=== PATIENT | female | born 1995 | race Caucasian/White ===

== ENCOUNTER 2024-08-22 13:22 | Inpatient (IN) ==
--- NOTE | 2024-08-22 13:39 | Emergency Department Note ---
History of Present Illness General Chief complaint: Dental/Oral Stated complaint: RIGHT SIDE TOOTH PAIN, FACIAL SWELLING Time Seen by Provider: 08/22/24 13:34 History of Present Illness Maximum Pain Intensity: 8 This is a 28-year-old female that presents to the emergency department via private vehicle with complaints of "right sided facial swelling, pain". The patient notes that she has had broken molars to the right upper dentition for the past 4 years. However, this past began with pain, edema that has progressively worsened since that time. She took 4 doses of cephalexin that she had leftover and was without any relief of her pain. The patient denies any pertinent past medical history. She notes allergy to amoxicillin/Augmentin. She notes history of 2 C-sections, tonsillectomy and colonoscopy. She also notes allergies to cefaclor and Benadryl. The patient denies any fevers or chills. She notes pain and swelling extending now overlying the right side of the face towards the right eye. Home Medications Medication Instructions Recorded Confirmed Type valacyclovir 500 mg tablet 500 mg PO DAILY 08/22/24 08/22/24 History Allergies Allergy/AdvReac Type Severity Reaction Status Date / Time amoxicillin Allergy Anaphylaxis Verified 08/22/24 15:42 clavulanic acid Allergy Anaphylaxis Verified 08/22/24 15:42 [From Augmentin] Past Med/Surg History Problem List (Updated 08/22/24 @ 17:01 by Zoran Villegas PA-C) Abnormal CT scan (Acute) Dental infection (Acute) Cellulitis and abscess of face (Acute) Social History Smoking Status: Current every day smoker Tobacco Type: Cigarettes Preferred Language: Ukrainian Feels Safe at Home: Yes Review of Systems A total of 10 systems reviewed and were otherwise negative Physical Exam Vital Signs Vital Signs - 24 hr 08/22/24 13:30 08/22/24 15:40 Temperature 36.5 C Temperature Source Temporal Artery Scan Pulse Rate 67 Pulse Rate [Apical] 53 L Respiratory Rate 20 16 Respiratory Effort / Characteristics Non-Labored Respiratory Depth Normal Respiratory Pattern Regular Blood Pressure 123/68 Blood Pressure [Right Arm] 126/85 Blood Pressure Mean 86 Blood Pressure Mean [Right Arm] 98 Pulse Oximetry 97 98 Oxygen Delivery Method Room Air Room Air Sepsis Recent Fever Within 48 Hours No Sepsis New/Unexplained Change in Mental Status N/A Sepsis Action Taken by Nursing No Action Required VITAL SIGNS - Vital signs and nursing notes were reviewed. Stable and afebrile. GENERAL -28-year-old female appearing her stated age who is in no acute distress. Communicates well with provider and answers questions appropriately. SKIN - Without rashes. There is right-sided facial erythema and edema. There is induration to palpation of the tissues with mild fluctuance HEAD - NC/AT. EYES - PERRL with EOMI bilaterally. Sclera anicteric. EARS - No deformities of external structures noted on gross examination bilaterally. NOSE - Midline and without cyanosis. No epistaxis or purulent drainage noted. MOUTH/OROPHARYNX - Without perioral cyanosis. Buccal mucosa pink and moist and without leukoplakia. Tongue midline with equal elevation of palate bilaterally. No tonsillar hypertrophy, erythema, or exudates noted. Fair dentition noted. Tooth #2 and 3 are in poor repair with surrounding gumline erythema and edema. NECK - Neck with FROM. Supple to palpation. Mild bilateral anterior cervical right greater than left lymphadenopathy noted. No nuchal rigidity. LUNGS - Chest wall symmetric without accessory muscle use, intercostals retractions, or central cyanosis. Normal vesicular breath sounds CTA B/L. No wheezes, rales, or rhonchi appreciated. CARDIAC - RRR EXTREMITIES - No clubbing or peripheral cyanosis. +5/5 strength noted in UE/LE bilaterally. NEUROLOGIC - Cranial nerves II through XII grossly intact. PSYCH -alert, oriented and pleasant on exam Course Administered Medications Discontinued Medications Clindamycin Phosphate (Cleocin/D5w) 600 mg in 50 mls @ 100 mls/hr IV NOW ONE Stop: 08/22/24 14:38 Last Infusion: 08/22/24 15:50 Dose: Infused Documented By: Admin: 08/22/24 14:52 Dose: 100 mls/hr Documented By: SILVINO Ioversol (Optiray 320 100ml) 93 ml IV ONCE ONE Stop: 08/22/24 15:18 Last Admin: 08/22/24 15:17 Dose: 93 ml Documented By: SARAVANAN Ketorolac Tromethamine (Ketorolac Tromethamine 15 Mg/Ml Vial) 10 mg IV NOW ONE Stop: 08/22/24 15:22 Last Admin: 08/22/24 15:42 Dose: 10 mg Documented By: REGINA Morphine Sulfate (Morphine Sulfate 2 Mg/Ml Carp) 2 mg IV NOW STA Stop: 08/22/24 14:10 Last Admin: 08/22/24 14:23 Dose: 2 mg Documented By: SILVINO Morphine Sulfate (Morphine Sulfate 2 Mg/Ml Carp) 2 mg IV NOW STA Stop: 08/22/24 15:22 Last Admin: 08/22/24 15:42 Dose: 2 mg Documented By: REGINA Medical Decision Making Laboratory Data 08/22/24 14:19 08/22/24 14:19 Lab Results 08/22/24 Range/Units 14:19 WBC 11.20 H (4.8-10.8) K/ul RBC 4.54 (4.20-5.40) M/uL Hgb 12.9 (12.0-16.0) g/dl Hct 40.1 (37.0-47.0) % MCV 88.3 (80.0-100.0) fL MCH 28.4 (25.0-34.0) pg MCHC 32.2 (32.0-36.0) g/dL RDW Std Deviation 42.6 (36.4-46.3) fL RDW Coeff of Carlos 13.2 (11.5-14.5) % Plt Count 274 (130-400) K/uL MPV 10.4 (9.4-12.4) fL Immature Gran % (Auto) 0.4 % Neut % (Auto) 74.0 % Lymph % (Auto) 18.6 % [place] % (Auto) 5.9 % Eos % (Auto) 0.7 % Baso % (Auto) 0.4 % Neut # (Auto) 8.29 H (1.40-6.50) K/uL Lymph # (Auto) 2.08 (1.20-3.40) K/uL [place] # (Auto) 0.66 H (0.11-0.59) K/uL Eos # (Auto) 0.08 (0.00-0.50) K/uL Baso # (Auto) 0.05 (0.00-0.20) K/uL Immature Gran # (Auto) 0.04 (0.01-0.20) K/uL Sodium 137 (136-145) mmol/L Potassium 4.0 (3.5-5.1) mmol/L Chloride 105 (98-107) mmol/L Carbon Dioxide 28 (21-32) mmol/L Anion Gap 4 (3-11) BUN 11 (6-23) mg/dl Creatinine 0.55 L (0.6-1.2) mg/dl Est Cr Clr Drug Dosing 183.7 ml/min eGFR 129.56 BUN/Creatinine Ratio 20.0 (10-20) Glucose 104 H (70-99(Fasting)) mg/dl Calcium 8.9 (8.6-10.3) mg/dl Total Bilirubin 0.3 (0.2-1.0) mg/dl AST 7 L (13-39) U/L ALT 4 L (7-52) U/L Alkaline Phosphatase 77 (34-104) U/L Total Protein 7.4 (6.0-8.3) gm/dl Albumin 4.2 (3.4-5.0) gm/dl Globulin 3.2 (2.5-4.0) gm/dl Albumin/Globulin Ratio 1.3 (0.9-2) HCG, Qual Negative (Negative) Imaging Data Radiologist's Impression: Face CT 08/22/24 14:09 EXAMINATION: CT facial bone with contrast PROCEDURE: Contiguous axial images were obtained through the face With the use of intravenous contrast in bone windows. Sagittal and coronal reformations are supplied. COMPARISON: None INDICATION: Right-sided facial edema FINDINGS: Moderate edema present within the deep subcutaneous tissues adjacent to the right upper teeth, image 4, series 95. Lucency present at the base of the right first upper molar, image 37, series 2 and image 37, series 301. Immediately adjacent to this, within the subcutaneous tissues laterally, a small fluid collection is present, image 115, series 4, measuring 8 mm. An osseous defect noted at the base of the right maxillary sinus, in the area of right upper periodontal disease, with total opacification of the right maxillary sinus, suggesting erosion into the sinus. Apparent postoperative change of the right maxillary sinus, medial wall. Adenopathy present adjacent to the angle of the right mandible, image 49, series 4. No left-sided facial swelling. There bilateral salivary glands enhance symmetrically. Lingular adenoids enlarged. Floor of the mouth and base of the tongue within normal limits. No tonsillar enlargement. Uvula and epiglottis have a normal appearance. No radiopaque foreign body. Airway is patent. IMPRESSION: 1. Right upper first molar periodontal disease with abscess, adjacent soft tissue swelling, adenopathy and apparent erosion into the right maxillary sinus. Total opacification of the right maxillary sinus present favoring acute and/or chronicsinus disease. Dental or oral surgery consultation suggested. ACT 112: Positive. There are findings on this examination that require communication between the performing entity and the patient following Patient Test Result Information Act ([place] ACT 112) guidelines. Electronically signed by Marycarmen Fontana 08-22-2024 4:03 PM MDM Narrative Patient was seen and evaluated as above in room D03. Review was performed of triage nursing notes and vital signs. Patient presents to us today for evaluation of progressive right-sided facial swelling and pain. This appears to be originating from tooth #2 and 3, right superior molar region. She does have associated facial cellulitis on the right. I am suspicious for underlying abscess as well. Options of care were discussed with the patient. IV access with established. Labs were drawn. Noting patient's allergies to penicillins and reportedly to some cephalosporins, we will proceed with IV clindamycin for coverage of the facial cellulitis likely of dental origin. Morphine x 2 ordered as well as IV Toradol. There is leukocytosis 11.20. No anemia. No emergent metabolic disturbance. hCG negative. CT scan of the face with IV contrast was performed. This is as above. Right upper first molar periodontal disease with abscess, adjacent soft tissue swelling, adenopathy and apparent erosion of the right maxillary sinus. There is total opacification of the right maxillary sinus present favoring acute and/or chronic sinus disease. 4:16 PM: [place] [facility] [place] will be for admission, IV antibiotics and further evaluation and management. Plan at this time is inpatient management. Case discussed with the hospitalist service. Please refer to further documentation regarding her stay. GCS: 15 In the evaluation and treatment of this patient, the following differential diagnoses were considered: Periapical Abscess, Osteonecrosis of the Jaw, Dental Fracture, Dental Caries, Rambo's Angina, Vincent's Angina, Facial Cellulitis, among others. Impression & Plan Cellulitis and abscess of face, Dental infection, Abnormal CT scan Discharge Plan Visit Data Chief Complaint: Dental/Oral Stated Complaint: RIGHT SIDE TOOTH PAIN, FACIAL SWELLING ED Provider: Jj Bagley ED Midlevel Provider: Zoran Villegas Discharge Problem: Cellulitis and abscess of face, Dental infection, Abnormal CT scan Patient Disposition: Admitted As Inpatient Condition: Good Forms Stand Alone Forms: [facility] Prescriptions Prescriptions: No Action valacyclovir 500 mg tablet 500 mg PO DAILY Referrals Referrals: PCP,NO [Primary Care Provider] -
[2024-08-22] MEDS: MoRPHine SULFATE 2 MG/ML CARP IV STA ×2 (14:23→15:42)
[2024-08-22 14:39] LABS: Basophils # (auto) 0.05 K/uL (0.00-0.20); Basophils % (auto) 0.4 %; Eosinophils # (auto) 0.08 K/uL (0.00-0.50); Eosinophils % (auto) 0.7 %; Hematocrit (blood only) 40.1 % (37.0-47.0); Hemoglobin 12.9 g/dl (12.0-16.0); Immature Granulocytes # (auto) 0.04 K/uL (0.01-0.20); Immature Granulocytes % (auto) 0.4 %; Lymphocytes # (auto) 2.08 K/uL (1.20-3.40); Lymphocytes % (auto) 18.6 %; Mean Corpuscular Hemoglobin 28.4 pg (25.0-34.0); Mean Corpuscular Hgb Conc 32.2 g/dL (32.0-36.0); Mean Corpuscular Volume 88.3 fL (80.0-100.0); Mean Platelet Volume 10.4 fL (9.4-12.4); Monocytes # (auto) 0.66 K/uL (0.11-0.59); Monocytes % (auto) 5.9 %; Neutrophils # (auto) 8.29 K/uL (1.40-6.50); Platelet Count 274 K/uL (130-400); RDW Coefficient of Variation 13.2 % (11.5-14.5); RDW Standard Deviation 42.6 fL (36.4-46.3); Red Blood Count 4.54 M/uL (4.20-5.40)
[2024-08-22 14:51] LABS: Pregnancy Test, Serum Negative (Negative)
[2024-08-22] MEDS: CLINDAMYCIN/D5W 600 MG/50 ML BAG IV ONE (14:52)
[2024-08-22 14:55] LABS: Albumin Globulin Ratio 1.3 (0.9-2); Albumin Level 4.2 gm/dl (3.4-5.0); Bilirubin,Total 0.3 mg/dl (0.2-1.0); Calcium 8.9 mg/dl (8.6-10.3); Creatinine Clr Calc Pharmacy 183.7 ml/min; Globulin 3.2 gm/dl (2.5-4.0); Total Protein 7.4 gm/dl (6.0-8.3)
[2024-08-22] MEDS: OPTIRAY 320 100ml IV ONE (15:17)
[2024-08-22] MEDS: KETOROLAC TROMETHAMINE 15 MG/ML VIAL IV ONE (15:42)
--- NOTE | 2024-08-22 16:03 | CT Scan Report ---
EXAMINATION: CT facial bone with contrast PROCEDURE: Contiguous axial images were obtained through the face With the use of intravenous contrast in bone windows. Sagittal and coronal reformations are supplied. COMPARISON: None INDICATION: Right-sided facial edema FINDINGS: Moderate edema present within the deep subcutaneous tissues adjacent to the right upper teeth, image 4, series 95. Lucency present at the base of the right first upper molar, image 37, series 2 and image 37, series 301. Immediately adjacent to this, within the subcutaneous tissues laterally, a small fluid collection is present, image 115, series 4, measuring 8 mm. An osseous defect noted at the base of the right maxillary sinus, in the area of right upper periodontal disease, with total opacification of the right maxillary sinus, suggesting erosion into the sinus. Apparent postoperative change of the right maxillary sinus, medial wall. Adenopathy present adjacent to the angle of the right mandible, image 49, series 4. No left-sided facial swelling. There bilateral salivary glands enhance symmetrically. Lingular adenoids enlarged. Floor of the mouth and base of the tongue within normal limits. No tonsillar enlargement. Uvula and epiglottis have a normal appearance. No radiopaque foreign body. Airway is patent. IMPRESSION: 1. Right upper first molar periodontal disease with abscess, adjacent soft tissue swelling, adenopathy and apparent erosion into the right maxillary sinus. Total opacification of the right maxillary sinus present favoring acute and/or chronicsinus disease. Dental or oral surgery consultation suggested. ACT 112: Positive. There are findings on this examination that require communication between the performing entity and the patient following Patient Test Result Information Act ([place] ACT 112) guidelines. Electronically signed by Marycarmen Fontana 08-22-2024 4:03 PM
--- NOTE | 2024-08-22 17:27 | History & Physical Report ---
Date of Service August 22, 2024 Assessment & Plan (1) Cellulitis and abscess of face: Plan: -CT imaging consistent with abscess formation and soft tissue swelling -in setting of difficulty with wisdom teeth and broken molar -acute on chronic sinusitis disease -has MRSA and anaerobic risk factors given facial placement Plan: -vancomycin/meropenem for empiric coverage of abscess (has penicillin allergy), deescalate based on culture data -OMFS consulted, potential procedure tomorrow, NPO after midnight -tylenol, oxycodone for pain control (2) Dental infection: Plan: -see above (3) Tobacco use: Plan: -nicotine patch Plan Feeding/fluids: regular (NPO after midnight) Analgesia: tylenol/oxy Sedation: na Thromboprophylaxis: heparin Head up position: na Ulcer prophylaxis: na Glycemic control: na Spontaneous breathing trial: na Bowel care: na Indwelling catheter removal: na Deescalation of antibiotics: vancomycin/meropenem, deescalate based on culture data I spent a total of 80 minutes in direct patient care, including [id number] time with the patient and/or family, reviewing medical records, ordering and reviewing diagnostic tests, and coordinating care with other healthcare providers. This time includes: history taking, physical examination, medical decision making, counseling, ECG interpretation, imaging interpretation, lab interpretation, orders, and education, excluding time spent in the performance of separately billed services. History of Present Illness Chief Complaint: -right facial swelling Primary Care Provider: NO PCP 28 yo female with pmhx of chronic dental infections (hx of 4 years total), current tobacco use who presents with right sided facial pain. States that she has been having issues with dental infections for the past 4 years. Per patient, one of her tooth broke 4 years ago and there was difficulty with wisdom teeth as well. She states this specific facial swelling is on the right side, has been getting worse, and has been there for the past 6-7 months. She describes pain as throbbing pain. Had anaphylactic reaction to augmentin, discussed with patient, described as hives and throat swelling. Current tobacco user, mild alcohol use, marijuana use, full code. Allergies Allergy/AdvReac Type Severity Reaction Status Date / Time amoxicillin Allergy Anaphylaxis Verified 08/22/24 15:42 clavulanic acid Allergy Anaphylaxis Verified 08/22/24 15:42 [From Augmentin] Home Medications Medication Instructions Recorded Confirmed Type valacyclovir 500 mg tablet 500 mg PO DAILY 08/22/24 08/22/24 History Past Med/Surg History Problem List Tobacco use Abnormal CT scan (Acute) Dental infection (Acute) Cellulitis and abscess of face (Acute) Social History Smoking Status: Current every day smoker Tobacco Type: Cigarettes Preferred Language: Slovak Feels Safe at Home: Yes Review of Systems Review of Systems: CONSTITUTIONAL: Patient denies fevers, chills, sweats and weight changes. EYES: Patient denies any visual symptoms. EARS, NOSE, AND THROAT: right facial pain and swelling CARDIOVASCULAR: Patient denies chest pains, palpitations, orthopnea and paroxysmal nocturnal dyspnea. RESPIRATORY: No dyspnea on exertion, no wheezing or cough. GI: No nausea, vomiting, diarrhea, constipation, abdominal pain, hematochezia or melena. : No urinary hesitancy or dribbling. No nocturia or urinary frequency. No abnormal urethral discharge. MUSCULOSKELETAL: No myalgias or arthralgias. NEUROLOGIC: No chronic headaches, no seizures. Patient denies numbness, tingling or weakness. PSYCHIATRIC: Patient denies problems with mood disturbance. No problems with anxiety. ENDOCRINE: No excessive urination or excessive thirst. DERMATOLOGIC: Patient denies any rashes or skin changes. Physical Exam Physical Exam: Gen: A&O 3 NAD HEENT: noted erythema and soft tissue edema of right face, abscess palpable, tender to palpation Neck: Supple, full range of motion, no observable masses, No meningeal sign. Lungs: No Respiratory distress. CV: RRR, no edema. Abdomen: Soft, nondistended, No rebound tenderness. MSK: No joint swelling, no redness. Skin: No rashes, petechiae, lesions. Normal color per patient. Neuro: Normal Gait, Grossly intact. Psych: Appropriate for situation. Results & Data Results & Data Vital Signs (Past 12 Hours) Vital Signs Temp Pulse Pulse Resp BP BP Pulse Ox 08/22/24 15:40 53 L 16 126/85 98 08/22/24 13:30 36.5 C 67 20 123/68 97 O2 Del Method 08/22/24 15:40 Room Air 08/22/24 13:30 Room Air Laboratory Results -personally reviewed, mild leukocytosis consistent with right facial infection Diagnostic Findings Face CT 08/22/24 14:09 EXAMINATION: CT facial bone with contrast PROCEDURE: Contiguous axial images were obtained through the face With the use of intravenous contrast in bone windows. Sagittal and coronal reformations are supplied. COMPARISON: None INDICATION: Right-sided facial edema FINDINGS: Moderate edema present within the deep subcutaneous tissues adjacent to the right upper teeth, image 4, series 95. Lucency present at the base of the right first upper molar, image 37, series 2 and image 37, series 301. Immediately adjacent to this, within the subcutaneous tissues laterally, a small fluid collection is present, image 115, series 4, measuring 8 mm. An osseous defect noted at the base of the right maxillary sinus, in the area of right upper periodontal disease, with total opacification of the right maxillary sinus, suggesting erosion into the sinus. Apparent postoperative change of the right maxillary sinus, medial wall. Adenopathy present adjacent to the angle of the right mandible, image 49, series 4. No left-sided facial swelling. There bilateral salivary glands enhance symmetrically. Lingular adenoids enlarged. Floor of the mouth and base of the tongue within normal limits. No tonsillar enlargement. Uvula and epiglottis have a normal appearance. No radiopaque foreign body. Airway is patent. IMPRESSION: 1. Right upper first molar periodontal disease with abscess, adjacent soft tissue swelling, adenopathy and apparent erosion into the right maxillary sinus. Total opacification of the right maxillary sinus present favoring acute and/or chronicsinus disease. Dental or oral surgery consultation suggested. ACT 112: Positive. There are findings on this examination that require communication between the performing entity and the patient following Patient Test Result Information Act ([place] ACT 112) guidelines. Electronically signed by Marycarmen Fontana 08-22-2024 4:03 PM -personally reviewed, facial CT shows abscess formation and soft tissue swelling Code Status & VTE Plan VTE Prophylaxis Plan VTE Prophylaxis will be ordered: Yes
[2024-08-22] MEDS ORDERED: VANCOMYCIN CONSULT ACTIVE PRN (17:32)
--- NOTE | 2024-08-22 18:13 | Oral/Maxillofacial Consult ---
Date of Consultation August 22, 2024 Assessment & Plan (1) Chronic sinus infection: (2) Acute sinusitis with symptoms greater than 10 days: (3) Cellulitis and abscess of face: (4) Dental infection: (5) Tobacco use: (6) Abnormal CT scan: History of Present Illness Reason for Consultation: right facial infection, sinus infection, carious # 1 and 3 (abscess teeth ) History of Present Illness Oral Maxillofacial Surgery Exam Present Complaint: I have pain/swelling/drainage from my infected teeth. Symptoms have been ongoing for a while over 4 years Recently had swelling of the right palate Now the right cheek, mucobuccal fold, and lateral maxillary space tender and swollen. Fistula noted in the right sinus with purulent drainage Oral Exam: Finding--Swollen and tender gingival tissue with deep pocket formation. Teeth # 1 and 3 are in an abnormal position and removal is clinical indicated. I&D needed as well of irrigation and I&D via Alvarez Hebert right sinus Imaging: The CT was reviewed, there were no abnormal findings other then the infected # 1 and # 3 teeth The right sinus is completely obliterated with fluid, a small fistula is noted, The medical wall of the sinus is eroded the ethmoid sinus right side also congested The TMJ are well positioned and no evidence of bony pathology. The left sinus is WNL Right -sinus see above Evaluated the nerve/sinus relationship to the roots of the teeth. The following teeth are grossly infected # 1 and #3 EXAMINATION: CT facial bone with contrast INDICATION: Right-sided facial edema FINDINGS: Moderate edema present within the deep subcutaneous tissues adjacent to the right upper teeth, image 4, series 95. Lucency present at the base of the right first upper molar, image 37, series 2 and image 37, series 301. Immediately adjacent to this, within the subcutaneous tissues laterally, a small fluid collection is present, image 115, series 4, measuring 8 mm. An osseous defect noted at the base of the right maxillary sinus, in the area of right upper periodontal disease, with total opacification of the right maxillary sinus, suggesting erosion into the sinus. Apparent postoperative change of the right maxillary sinus, medial wall. Adenopathy present adjacent to the angle of the right mandible, image 49, series 4.--No history of sinus surgery this is from the chromic sinus infection No left-sided facial swelling. There bilateral salivary glands enhance symmetrically. Lingular adenoids enlarged. Floor of the mouth and base of the tongue within normal limits. No tonsillar enlargement. Uvula and epiglottis have a normal appearance. No radiopaque foreign body. Airway is patent. IMPRESSION: 1. Right upper first molar periodontal disease with abscess tooth # 1 and 3 , adjacent soft tissue swelling, adenopathy and apparent erosion into the right maxillary sinus. Total opacification of the right maxillary sinus present favoring acute and/or chronic sinus disease. Dental or oral surgery consultation suggested. Soft tissue: The floor of the mouth, tongue, hard/soft palate, posterior pharyngeal area all with in normal limits, no pathology or abnormal findings noted. Oral Care: Overall oral care is good except upper right side Occlusion: Class I TMJ exam: No pop, clicking, pain, good ROM, No history of TMJ injury or dysfunction Periodontal exam: Healthy gingival tissue without evidence of periodontal pathology except right upper Head/Neck exam: Neck is supple, FROM, Able to extend and flex neck w/o difficulty, no masses, no abnormalities, no airway issues, no evidence of sleep apnea. Treatment Plan: I&D mucobuccal area, right sinus, extraction # 1 and 3 Set up with general anesthesia in hospital due to complexity of the procedure I reviewed the treatment plan and consent with the patient and mother who was on the phone Time was given for questions regarding the surgery, risks and post op care. Discussed alternative to treatment--procedure as planned, Do not do surgery The following teeth are decayed and fractured and removal is indicated ODIN 1, 3 I&D, Alvarez-Hebert Risks discussed: Bleeding,Pain,swelling,infection, dry socket, delayed healing, nerve injury to face,lips,tongue,chin area which could be permanent (rare). TMJ, jaw stiffness, change in bite (rare), ear pain (referred). Sinus problems like fistula or infection. Need to leave a small root fragment in place to avoid injury to nerve or sinus. Relationship of teeth to sinus and risk of sinus infection or further sinus treatment Surgery to be set up Friday with [place] in OR Allergies Allergy/AdvReac Type Severity Reaction Status Date / Time amoxicillin Allergy Anaphylaxis Verified 08/22/24 15:42 clavulanic acid Allergy Anaphylaxis Verified 08/22/24 15:42 [From Augmentin] Home Medications Medication Instructions Recorded Confirmed Type valacyclovir 500 mg tablet 500 mg PO DAILY 08/22/24 08/22/24 History Patient History Social History Smoking Status: Current every day smoker Tobacco Type: Cigarettes Preferred Language: Syriac Feels Safe at Home: Yes Physical Exam Physical Exam: Physical Exam Constitutional WD/WN, vitals as above Eyes PERRL, conjunctivae normal, anicteric sclerae Mouth Right upper first molar periodontal disease with abscess tooth # 1 and 3 , adjacent soft tissue swelling, adenopathy and apparent erosion into the right maxillary sinus. Total opacification of the right maxillary sinus present favoring acute and/or chronic sinus disease. Dental or oral surgery consultation suggested. Neck trachea midline, no thyromegaly Thyroid: normal thyroid Respiratory normal respiratory effort, lungs clear to auscultation Auscultation: lungs clear to auscultation bilaterally Cardiovascular RRR, no murmur, no edema Rate/Rhythm: regular rate and regular rhythm Gastrointestinal (Abdomen) normal bowel sounds, soft, nontender, no hepatosplenomegaly Musculoskeletal no cyanosis or clubbing, extremities motor strength 5/5 Skin no rashes, warm and dry Neurologic PERRL, EOMI, accommodation nl, no face palsy, no dysarthria Cranial Nerves: sense of smell intact, PERRL, normal accommodation, EOM intact bilaterally, normal facial strength, tongue midline, normal gag reflex, normal hearing, able to rotate head bilaterally, able to elevate shoulders bilaterally, no nystagmus and symmetric palate elevation Psychiatric A+Ox3, euthymic affect Orientation: cooperative Lymphatic no cervical or axillary lymphadenopathy Results & Data Vital Signs (Past 12 Hours) Vital Signs Temp Pulse Pulse Resp BP BP Pulse Ox 08/22/24 15:40 53 L 16 126/85 98 08/22/24 13:30 36.5 C 67 20 123/68 97 O2 Del Method 08/22/24 15:40 Room Air 08/22/24 13:30 Room Air PG Care Time/CCT Total # of Minutes Spent Total Time Spent with Patient: Total time spent is greater than 50% in coordination of care (as documented) at patient's floor/unit and/or counseling patient: Coding Level of Care Code 76142 OFFICE CONSULT LVL M Diagnoses Chronic maxillary sinusitis J32.0 Sinusitis location: maxillary Acute sinusitis with symptoms greater than 10 days J01.90 Cellulitis and abscess of face L03.211; L02.01 Dental infection K04.7 Tobacco use Z72[address] scan R93.89 (1) Chronic sinus infection Sinusitis location: maxillary Qualified Code(s): J32.0 - Chronic maxillary sinusitis
[2024-08-22] MEDS: ACETAMINOPHEN 500 MG TAB PO STA (18:26)
[2024-08-22] MEDS: NICOTINE 14 MG/24 HR PATCH TD SCH (18:27)
[2024-08-22] MEDS ORDERED: ACETAMINOPHEN 500 MG TAB PO PRN (19:02)
[2024-08-22] MEDS ORDERED: POLYETHYLENE (MIRALAX) 17 GM PACK PO PRN (19:02)
[2024-08-22] MEDS: oxyCODONE HCL IR 5 MG TAB (IMMEDIATE RELEASE) PO PRN (19:56)
[2024-08-22] MEDS: MEROPENEM 500 MG in SYRINGE 0 ML IV SCH (20:25)
[2024-08-22] MEDS: VANCOMYCIN HCL 2,250 MG in SODIUM CHLORIDE 0.9% 500 ML IV ONE (20:27)
[2024-08-22] MEDS: HEPARIN SOD 5,000 UNIT/0.5 ML VIAL SQ SCH (23:07)
[2024-08-22] MEDS: CETIRIZINE HCL 10 MG TABLET PO ONE (23:16)
[2024-08-22] MEDS: FAMOTIDINE 20MG IV PUSH 20 MG/5 ML SYR IV STA (23:16)
[2024-08-22] MEDS: ACETAMINOPHEN 500 MG TAB PO PRN (23:22)
[2024-08-23] MEDS: CLINDAMYCIN/D5W 600 MG/50 ML BAG IV SCH (05:06)
[2024-08-23] MEDS ORDERED: VANCOMYCIN HCL 1,250 MG in SODIUM CHLORIDE 0.9% 250 ML IV SCH (06:00)
[2024-08-23 06:14] LABS: Hematocrit (blood only) 37.1 % (37.0-47.0); Hemoglobin 11.7 g/dl (12.0-16.0); Mean Corpuscular Hgb Conc 31.5 g/dL (32.0-36.0); Mean Corpuscular Volume 88.8 fL (80.0-100.0); Mean Platelet Volume 10.6 fL (9.4-12.4); Platelet Count 229 K/uL (130-400); RDW Coefficient of Variation 13.3 % (11.5-14.5); RDW Standard Deviation 43.4 fL (36.4-46.3); Red Blood Count 4.18 M/uL (4.20-5.40); White Blood Count 10.41 K/ul (4.8-10.8)
[2024-08-23 06:31] LABS: BUN Creatinine Ratio 14.8 (10-20); Calcium 8.7 mg/dl (8.6-10.3); Creatinine Clr Calc Pharmacy 165.6 ml/min; Potassium 3.7 mmol/L (3.5-5.1)
[2024-08-23 06:53] LABS: Prothrombin Time 11.2 Seconds (9.0-12.0)
--- NOTE | 2024-08-23 07:38 | Communication Note ---
Date of Service: August 23, 2024 Last night while getting iv vanco gurpreet developed itchiness in hands, erythematous rash in hands and fore arm and back. 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 stopped iv vanco. received meropenem earlier.Gave zyrtec (patient has allergy to benadryl) and iv Pepcid. Symptoms improved. Also patient has severe allergy to pencillins, so held meropenem. Started on iv clindamycin later.
[2024-08-23] MEDS: KETOROLAC TROMETHAMINE 15 MG/ML VIAL IV PRN (10:04)
[2024-08-23] MEDS ORDERED: ONDANSETRON INJ 2 MG/ML 2 ML VIAL IV PRN (12:42)
[2024-08-23] MEDS ORDERED: PROMETHAZINE HCL 6.25 MG in SODIUM CHLORIDE 0.9% 50 ML IV PRN (12:42)
[2024-08-23] MEDS ORDERED: ATROPINE SULFATE 0.1 MG/ML 10ML SYR IV PRN (12:42)
[2024-08-23] MEDS ORDERED: ePHEDrine sulfate 50 MG/ML AMP IV PRN (12:42)
--- NOTE | 2024-08-23 12:44 | Anesthesiology Consultation ---
Date of Service August 23, 2024 Assessment & Plan (1) Encounter for pre-operative examination: Chart Review Chart Review: Acceptable Risk for Surgery and Patient NOT seen in Pre Admission Testing Consults Requested none History Surgery Operation Date: 08/23/24 07:00 Proposed Procedures p Drainage of sinus abscess and removal of 2 teeth(Not Applicable) - Willard Jackson, DMD Height/Weight Height: 5 ft 8 in Weight: 91.8 kg Allergies Allergy/AdvReac Type Severity Reaction Status Date / Time amoxicillin Allergy Anaphylaxis Verified 08/22/24 15:42 clavulanic acid Allergy Anaphylaxis Verified 08/22/24 15:42 [From Augmentin] diphenhydramine Allergy Anaphylaxis Verified 08/23/24 01:20 [From Benadryl] Medications Home Medications Medication Instructions Recorded Confirmed Last Taken valacyclovir 500 mg tablet 500 mg PO DAILY 08/22/24 08/22/24 08/22/24 Active Medications Generic Name Dose Route Start Last Admin Trade Name Freq PRN Reason Stop Dose Admin Acetaminophen 1,000 mg 08/22/24 17:44 08/23/24 07:08 Acetaminophen 500 Mg Tab PO 09/21/24 17:43 1,000 mg Q8H PRN Administration Pain or Fever Heparin Sodium (Porcine) 5,000 units 08/22/24 22:00 08/23/24 05:04 Heparin Sod 5,000 Unit/0.5 Ml Vial SQ 09/21/24 21:59 5,000 units Q8 JOHAN Administration Meropenem 500 mg/ Syringe 10 mls @ 2 mls/min 08/22/24 18:00 08/22/24 20:25 IV 08/29/24 17:59 2 mls/min Q6H JOHAN Administration Protocol Clindamycin Phosphate 600 mg in 50 mls @ 100 mls/hr 08/23/24 05:00 08/23/24 05:36 Cleocin/D5w IV 08/30/24 04:59 Infused Q8H JOHAN Infusion Ketorolac Tromethamine 15 mg 08/23/24 09:48 08/23/24 10:04 Ketorolac Tromethamine 15 Mg/Ml Vial IV 08/28/24 09:47 15 mg Q6H PRN Administration Mild-Mod Pain (Scale 1-6) Miscellaneous 1 each 08/22/24 17:59 08/23/24 07:09 Remove Nicoderm Patch N/A 09/21/24 17:58 1 each DAILY@0859 JOHAN Administration Nicotine 1 patch 08/22/24 18:00 08/23/24 08:59 Nicotine 14 Mg/24 Hr Patch TD 09/21/24 17:59 1 patch QAM JOHAN Administration Oxycodone HCl 5 mg 08/22/24 17:34 08/23/24 08:59 Oxycodone Hcl Ir 5 Mg Tab (Immediate Release) PO 09/05/24 17:33 5 mg Q4 PRN Administration Breakthrough Pain NPO Date Last Intake of Fluids: 08/22/24 Time Last Intake of Fluids: 23:57 Date Last Intake of Solids: 08/22/24 Time Last Intake of Solids: 22:30 Past Medical History Medical History (Updated 08/23/24 @ 12:44 by Jostin Weir MD) Encounter for pre-operative examination Obesity Tobacco use Cellulitis and abscess of face Social History Smoking Status: Current every day smoker Do You Dip or Chew Tobacco: No Hx Alcohol Use: No Hx Substance Use: Yes substance use type: marijuana Last Used Substance: Hours (ago) Last Used Substance Other:: Friday Physical Exam Vital Signs Last Vital Signs Temp 36.8 C 08/23/24 12:30 Pulse 73 08/23/24 12:30 Resp 18 08/23/24 12:30 BP 109/59 L 08/23/24 12:30 Pulse Ox 99 08/23/24 12:30 O2 Del Method Room Air 08/23/24 12:30 Testing Laboratory Results 08/23/24 05:33 08/23/24 05:33 PT 11.2 Seconds (9.0-12.0) 08/23/24 05:33 INR 1.0 (0.9-1.1) 08/23/24 05:33
[2024-08-23] MEDS ORDERED: LACTATED RINGER'S 1,000 ML IV SCH (12:45)
[2024-08-23] MEDS ORDERED: PROPOFOL IV EMULSION 10 MG/ML 20 ML VIAL IV ONE (12:52)
[2024-08-23] MEDS ORDERED: DEXAMETHASONE SOD INJ 4 MG/ML VIAL ONE (12:52)
[2024-08-23] MEDS ORDERED: LIDOCAINE 2% 2 ML VIAL/AMP(20MG/ML) INFIL ONE (12:52)
[2024-08-23] MEDS ORDERED: ONDANSETRON INJ 2 MG/ML 2 ML VIAL ONE (12:52)
[2024-08-23] MEDS ORDERED: fentaNYL citrate PF 100 MCG/2 ML VIAL ONE (12:53)
[2024-08-23] MEDS ORDERED: ROCURONIUM BROMIDE 10 MG/ML 5 ML VIAL IV ONE (12:53)
[2024-08-23] MEDS ORDERED: MIDAZOLAM HCL 1 MG/ML 2ML VIAL ONE (12:53)
--- NOTE | 2024-08-23 12:54 | History & Physical Bridge Note ---
Date of Service August 23, 2024 History & Physical Bridge Note I have examined the patient, reviewed the History & Physical and in the interval since the performance of the History & Physical I have noted the following changes of clinical significance: no changes noted OK for the planned surgery
[2024-08-23] MEDS: CHLORHEXIDINE GLUCONATE 0.12% 480 ML MT ONE (13:23)
[2024-08-23] MEDS: BUPIVACAINE/EPINEPHRINE 0.5% 1:200,000 1.8 ML CARP ONE (13:23)
--- NOTE | 2024-08-23 13:34 | Hospitalist Progress Note ---
Date of Service August 23, 2024 Assessment & Plan (1) Dental infection: (2) Tobacco use: Plan: 28 yr old F with R facial edema and pain. ---Face CT: 1. Right upper first molar periodontal disease with abscess, adjacent soft tissue swelling, adenopathy and apparent erosion into the right maxillary sinus. Total opacification of the right maxillary sinus present favoring acute and/or chronicsinus disease. Dental or oral surgery consultation suggested. Pt seen and evaluated by Dr. Jackson OMFS Plan to undergo I and D and extraction later today remains NPO place on IV toradol 15mg q6hr prn mild-mod pain and IV morphine 2mg q4hr prn for severe pain while NPO continue IV clindamycin given pt multiple allergies ICE TID WBC trending down ADR to IV Vanco ? micah syn antibiotic d/c pt received IV pepcid and zyrtec due to allergy to benadryl sx resolved pt with multiple allergies DVT ppx: Placed on SQ heparin, placed on hold for upcoming oral surgery, suspect post op pt can ambulate given age FULL CODE PCP: no pcp, will need established Dispo: admitted to medical, suspect to remain admitted through today, possible d/c tomorrow if tolerated diet/pain controlled Pt was seen and examined in collaboration with Dr. Green, please see addendum I spent a total of 51 minutes coordinating, documenting and providing care for this patient excluding time spent in the performance of separately billed services or time spent by another provider/QHP. Admission and Anticipated Discharge Date Admission Date: August 22, 2024 Supervising Physician Co-Signing Physician Notes I have seen and discussed the case with the collaborating advanced practitioner. I agree with the above PN I have reviewed and confirmed the patients medical history, the findings on physical examination, and the patients diagnosis and treatment plan with Fredy RON and agree with the information documented. Ms. Finn is a 28 yo old admitted for facial swelling and noted to have periodontal disease with abscess. Patient pending extraction with OMFS. agree with plan I have reviewed the advanced practitioner's documentation, and I agree with, and take responsibility for the plan of care Subjective Pt was seen in room 305. Boyfriend at bedside. Pt reports increased pain and swelling to her R cheek. She reports chronic inability to see of her L eye. She is concerned with her cheek swelling it will obstruct her, "good eye." She denies f/c/s, chest pain, sob, n/v. She remains NPO. She reports pain 8/10. She had an allergic rxn to vanco overnight and received IV pepcid and steroids and sx resolved. Review of Systems Review of Systems: All systems reviewed & are unremarkable except as noted in HPI & below Physical Exam Physical Exam: Gen: WD/WN, F, NAD, A&O x3 HEENT: Normocephalic, atraumatic, conjunctivae moist, sclerae anicteric, + R buccal/cheek edema and erythema Lung: Clear to Auscultation bilaterally, no wheezes/rales/rhonchi Heart: Regular rate, regular rhythm, no murmurs, rubs, or gallops Abdomen: Soft, NT, ND +BS x 4 Extremities: No edema Skin: Warm, no rash, negative turgor. Results & Data Results & Data Vital Signs (Past 12 Hours) Vital Signs Temp Pulse Resp BP Pulse Ox O2 Del Method 08/23/24 12:30 36.8 C 73 18 109/59 L 99 Room Air 08/23/24 07:16 37.1 C 73 18 117/73 98 Room Air Laboratory Results I have independently reviewed and interpreted patient's cbc, bmp Medications Administered Current Inpatient Medications Acetaminophen (Acetaminophen 500 Mg Tab) 1,000 mg PO Q8H PRN PRN Reason: Pain or Fever Stop: 09/21/24 17:43 Last Admin: 08/23/24 07:08 Dose: 1,000 mg Atropine Sulfate (Atropine Sulfate 0.1 Mg/Ml 10ml Syr) 0.5 mg IV Q1M PRN PRN Reason: PACU Use-HR<40 &/or Bradycardi Stop: 08/23/24 20:42 Ephedrine Sulfate (Ephedrine Sulfate 50 Mg/Ml Amp) 5 mg IV Q5M PRN PRN Reason: PACU Use Only-SBP<90 mmHg Stop: 08/23/24 20:42 Fentanyl Citrate (Fentanyl Citrate Pf 100 Mcg/2 Ml Vial) 25 mcg IV Q5M PRN PRN Reason: PACU Use Only-Pain Stop: 08/23/24 20:43 Heparin Sodium (Porcine) (Heparin Sod 5,000 Unit/0.5 Ml Vial) 5,000 units SQ Q8 JOHAN Stop: 09/21/24 21:59 Last Admin: 08/23/24 05:04 Dose: 5,000 units Meropenem 500 mg/ Syringe 10 mls @ 2 mls/min IV Q6H [facility]; Protocol Stop: 08/29/24 17:59 Last Admin: 08/22/24 20:25 Dose: 2 mls/min Clindamycin Phosphate (Cleocin/D5w) 600 mg in 50 mls @ 100 mls/hr IV Q8H [facility] Stop: 08/30/24 04:59 Last Infusion: 08/23/24 05:36 Dose: Infused Promethazine HCl 6.25 mg/ (Sodium Chloride) 50.25 mls @ 204 mls/hr IV ONCE PRN PRN Reason: PACU Use Only-Nausea/Vomiting Stop: 08/23/24 20:43 Lactated Ringer's (Lr) 1,000 mls @ 0 mls/hr IV .Q0M [facility] Stop: 08/24/24 12:44 Ketorolac Tromethamine (Ketorolac Tromethamine 15 Mg/Ml Vial) 15 mg IV Q6H PRN PRN Reason: Mild-Mod Pain (Scale 1-6) Stop: 08/28/24 09:47 Last Admin: 08/23/24 10:04 Dose: 15 mg Miscellaneous (Remove Nicoderm Patch) 1 each N/A DAILY@0859 [facility] Stop: 09/21/24 17:58 Last Admin: 08/23/24 07:09 Dose: 1 each Morphine Sulfate (Morphine Sulfate 2 Mg/Ml Carp) 2 mg IV Q4H PRN PRN Reason: Severe Pain (Scale 7, 8, 9,10) Stop: 09/06/24 09:47 Nicotine (Nicotine 14 Mg/24 Hr Patch) 1 patch TD QAM [facility] Stop: 09/21/24 17:59 Last Admin: 08/23/24 08:59 Dose: 1 patch Ondansetron HCl (Ondansetron Inj 2 Mg/Ml 2 Ml Vial) 4 mg IV ONCE PRN PRN Reason: PACU Use Only-Nausea/Vomiting Stop: 08/23/24 20:43 Oxycodone HCl (Oxycodone Hcl Ir 5 Mg Tab (Immediate Release)) 5 mg PO Q4 PRN PRN Reason: Breakthrough Pain Stop: 09/05/24 17:33 Last Admin: 08/23/24 08:59 Dose: 5 mg Polyethylene Glycol (Polyethylene (Miralax) 17 Gm Pack) 17 gm PO DAILY PRN PRN Reason: Constipation Stop: 09/21/24 19:01
[2024-08-23] MEDS ORDERED: SUGAMMADEX SODIUM 200 MG/2 ML VIAL IV ONE (13:51)
[2024-08-23] MEDS: fentaNYL citrate PF 100 MCG/2 ML VIAL IV PRN (14:07)
--- NOTE | 2024-08-23 14:20 | Post Operative Brief Note ---
PG Immediate Post Op with CF Date of Surgery August 23, 2024 Pre & Post Diagnosis Operation Date: 08/23/24 07:00 Pre-Op Diagnosis: Right Facial Infection, Sinus Infection, Carious # 1 and #3 (abscess teeth) Post-Op Diagnosis: Right Facial Infection, Sinus Infection, Carious # 1 and #3 (abscess teeth) I identified the patient and participated in the time-out.: Yes Procedure Operation Date: 08/23/24 07:00 Actual Procedures p Extraction of Teeth #1 and #3, Incision and Drainage of Right Facial Abscess, Right Maxillary Sinus Alvarez Hebert(Not Applicable) - Willard Jackson, MELISSA Surgeon Willard Jackson, DMD Serology Teacher none Estimated Blood Loss 5 Findings Consistent with Post-Op Diagnosis chronic sinus infection face and sinus carious teeth 1 and 3 Specimens Specimen Description: Culture #1--Right Maxillary Sinus--for routine culture and sensitivity, gram stain, aerobes and anaerobes A. Necrotic Bone Right Maxilla Complications none Disposition Accompanied Patient To Recovery: Yes
--- NOTE | 2024-08-23 14:40 | Anesthesiology Progress Note ---
Date of Service August 23, 2024 Anesthesia Post Procedure Vital Signs Vital Signs: Temp Pulse Pulse Pulse Resp BP BP 08/23/24 14:39 36.2 C L 66 13 120/77 08/23/24 14:30 66 17 122/69 08/23/24 14:20 72 13 123/66 08/23/24 14:10 70 14 141/84 H 08/23/24 14:01 36.1 C L 82 14 135/76 08/23/24 12:30 36.8 C 73 18 109/59 L 08/23/24 07:16 37.1 C 73 18 117/73 08/22/24 19:04 36.8 C 72 16 117/76 08/22/24 18:22 76 18 126/85 08/22/24 15:40 53 L 16 126/85 Pulse Ox O2 Del Method O2 Flow Rate 08/23/24 14:39 94 Room Air 08/23/24 14:30 96 Room Air 08/23/24 14:20 94 Room Air 08/23/24 14:10 100 Oxymask 5 08/23/24 14:01 96 Oxymask 13 08/23/24 12:30 99 Room Air 08/23/24 07:16 98 Room Air 08/22/24 19:04 99 Room Air 08/22/24 18:22 99 Room Air 08/22/24 15:40 98 Room Air Pain Intensity Right Mouth: Pain Intensity: 4 Transfer of Care Handoff Completed per policy Notes Mental Status: alert / awake / arousable and participated in evaluation Patient Amnestic to Procedure: Yes Nausea / Vomiting: adequately controlled Pain: adequately controlled Airway Patency, RR, SpO2: stable & adequate BP & HR: stable & adequate Hydration State: stable & adequate Anesthetic Complications: no major complications apparent and Pt Satisfied with anesthetic care
[2024-08-23] MEDS: MoRPHine SULFATE 2 MG/ML CARP IV PRN (15:27)
[2024-08-24 02:16] VITALS: TEMP 98.2
[2024-08-24 06:21] LABS: Hemoglobin 11.5 g/dl (12.0-16.0); Mean Corpuscular Hemoglobin 28.8 pg (25.0-34.0); Mean Corpuscular Hgb Conc 32.9 g/dL (32.0-36.0); Mean Corpuscular Volume 87.5 fL (80.0-100.0); Mean Platelet Volume 10.6 fL (9.4-12.4); Platelet Count 232 K/uL (130-400); RDW Coefficient of Variation 13.2 % (11.5-14.5); RDW Standard Deviation 42.5 fL (36.4-46.3); White Blood Count 10.28 K/ul (4.8-10.8)
[2024-08-24 06:53] LABS: BUN Creatinine Ratio 20.8 (10-20); Calcium 8.9 mg/dl (8.6-10.3); Creatinine Clr Calc Pharmacy 210.5 ml/min; Potassium 3.7 mmol/L (3.5-5.1)
[2024-08-24 07:18] VITALS: BP 102/68; PULSE 72; RESP 16; O2SAT 99
--- NOTE | 2024-08-24 07:55 | Hospitalist Progress Note ---
Date of Service August 24, 2024 Assessment & Plan Admission and Anticipated Discharge Date Admission Date: August 22, 2024 Results & Data Results & Data Vital Signs (Past 12 Hours) Vital Signs Temp Pulse Resp BP BP Pulse Ox O2 Del Method 08/24/24 07:18 36.8 C 72 16 102/68 99 Room Air 08/24/24 02:14 36.8 C 59 L 14 104/62 95 Room Air 08/23/24 23:45 37.0 C 58 L 16 100/59 L 96 Room Air
[2024-08-24] MEDS ORDERED: AZTREONAM 2,000 MG in DEXTROSE 5% MINI-B 100 ML IV SCH (08:00)
[2024-08-24] MEDS: valACYclovir HCL 500 MG TABLET PO SCH (08:49)
[2024-08-24] MEDS: DOXYCYCLINE HYCLATE 100 MG CAP PO SCH (08:49)
[2024-08-24] MEDS: ADVANCED PROBIOTIC 625 MG CAPSULE PO SCH (08:49)
[2024-08-24] MEDS: metroNIDAZOLE 500 MG TAB PO SCH ×2 (08:50→08:52)
[2024-08-24] MEDS: DOCUSATE SODIUM 100 MG CAP PO SCH (08:50)
--- NOTE | 2024-08-24 10:59 | Oral/Maxillofacial Progress Nt ---
Date of Service August 24, 2024 Assessment & Plan Admission and Anticipated Discharge Date Admission Date: August 22, 2024 Subjective Post Op infection evaluation 24 hours The infected area is resolving very well Swelling is now softer and the oral tissue is back to normal in size and texture. No further drainage is noted. Sinus is very clear, no sinus opening or air leak from the sinus Kim rios ocedure Cultures -still pending Infection has responded very well to the antibiotics, extractions and the I and D. I requested that the patient continue with massage, heat and wound care. At this time the area is well healed and responded well to treatment, no further treatment needed. OK for d/c from [facility] Rx -Clindamycin, Vicodin, Peridex RTC 10 days for follow up with Dr Jackson Results & Data Vital Signs (Past 12 Hours) Vital Signs Temp Pulse Resp BP BP Pulse Ox O2 Del Method 08/24/24 07:18 36.8 C 72 16 102/68 99 Room Air 08/24/24 02:14 36.8 C 59 L 14 104/62 95 Room Air 08/23/24 23:45 37.0 C 58 L 16 100/59 L 96 Room Air PG Care Time/CCT Total # of Minutes Spent Total Time Spent with Patient: Total time spent is greater than 50% in coordination of care (as documented) at patient's floor/unit and/or counseling patient: Coding Level of Care Code 97811 SUB INP/OBS CARE 07/03MIN
--- NOTE | 2024-08-24 12:00 | Discharge Summary ---
Discharge Summary Date of Service August 24, 2024 Principal Dx & Hospital Course #1 = Principal Diagnosis (1) Dental infection: (2) Tobacco use: Patient is a 28 yr old F with R facial edema and pain. Face CT on admission revealed Right upper first molar periodontal disease with abscess, adjacent soft tissue swelling, adenopathy and apparent erosion into the right maxillary sinus. Total opacification of the right maxillary sinus present favoring acute and/or chronic sinus disease. Patient seen and evaluated by Dr. Jackson, [facility], and underwent Extraction of Teeth #1 and #3, Incision and Drainage of Right Facial Abscess, Right Maxillary Sinus Alvarez Hebert by Dr. Jackson on 08/23/24. R maxillary sinus culture pending. Initially on vanco/meropenem but developed possible red man syndrome on vanco and transitioned to clinda. Post-procedure, patient transition to doxy flagyl to complete abx course. Pain control with PRN tylenol and advil, vicodin for breakthrough pain. Area resolving with reduced swelling and ability to tolerate liquids and soft solids. Instructed to continue with massage, heat and wound care and follow up with Dr. Jackson in clinic in 10 days. Hemodynamically stable and comfortable at time of discharge home. Notes For Next Care Provider s/p I&D for I&D R facial abscess, teeth extraction Medication Changes From Visit Complete doxy and flagyl course, probiotic, PRN vicodin Admission HPI Per Admitting Provider 28 yo female with pmhx of chronic dental infections (hx of 4 years total), current tobacco use who presents with right sided facial pain. States that she has been having issues with dental infections for the past 4 years. Per patient, one of her tooth broke 4 years ago and there was difficulty with wisdom teeth as well. She states this specific facial swelling is on the right side, has been getting worse, and has been there for the past 6-7 months. She describes pain as throbbing pain. Had anaphylactic reaction to augmentin, discussed with patient, described as hives and throat swelling. Current tobacco user, mild alcohol use, marijuana use, full code. Admission Exam Per Admitting Provider Gen: A&O 3 NAD HEENT: noted erythema and soft tissue edema of right face, abscess palpable, tender to palpation Neck: Supple, full range of motion, no observable masses, No meningeal sign. Lungs: No Respiratory distress. CV: RRR, no edema. Abdomen: Soft, nondistended, No rebound tenderness. MSK: No joint swelling, no redness. Skin: No rashes, petechiae, lesions. Normal color per patient. Neuro: Normal Gait, Grossly intact. Psych: Appropriate for situation. Discharge Exam Gen: WD/WN, NAD, sitting in bedside chair, A&Ox3 HEENT: Normocephalic, atraumatic, + R facial swelling with TTP over buccal area, well healing intraoral post extractions Lung: Clear to Auscultation bilaterally, no wheezes/rales/rhonchi Heart: Regular rate, regular rhythm, no murmurs, rubs, or gallops Abdomen: Soft, NT, ND +BS x 4 Extremities: no edema Skin: Warm, no rash Updated Medication List Medication Instructions Recorded Confirmed Type valacyclovir 500 mg tablet 500 mg PO DAILY 08/22/24 08/22/24 History doxycycline hyclate 100 mg capsule 100 mg PO BID #8 caps 08/24/24 Rx hydrocodone 5 mg-acetaminophen 325 1 tab PO Q4H PRN pain #14 tabs 08/24/24 Rx mg tablet lactobacillus combination no.4 3 3,000 mmu cells PO DAILY #7 caps 08/24/24 Rx billion cell capsule (Probiotic) metronidazole 500 mg tablet 500 mg PO Q8H #12 tabs 08/24/24 Rx chlorhexidine gluconate 0.12 % 15 ml mucous membrane BID oral 08/25/24 Rx mouthwash (Peridex) infection #473 mL Hospital Stay Data Consultations 08/22/24 16:29 ED Decision to Admit Stat Procedures Performed Operation Date: 08/23/24 07:00 Actual Procedures p Extraction of Teeth #1 and #3, Incision and Drainage of Right Facial Abscess, Right Maxillary Sinus Alvarez Hebert(Not Applicable) - Willard Jackson, DMD Diagnostic Imagining Performed 08/22/24 14:09 CT facial bones w con Stat Pending Results Patient Have Any Pending Studies at Discharge: Yes Discharge Instructions Given to Patient (Per Discharging Provider) ADDITIONAL ACTIVITY RECOMMENDATIONS: * [place] teeth after every meal. It is very important to keep your mouth clean to prevent infection. * Starting tonight rinse with the Peridex as directed then 2 x a day * it is very important to keep well hydrated, this prevents fever and possible dry socket pain SPECIAL CARE INSTRUCTIONS: *It is not uncommon that between day 2-4 that your swelling will be at its worst this is very normal, do not be alarmed. * Keep ice on the side of your face for the next 24 to 36 hours. This will help keep the swelling down. * Normal saline spray 2 sprays each nostril 4 x a day to keep the right sinus clear * You may experience slight nausea. To prevent this, never take your medication on an empty stomach. If nauseated, take small sips of huong filipe until you feel better; then you may start on applesauce and toast. * A certain amount of bleeding is to be expected. It is often possible to control mild oozing by placing folded gauze over the area and biting down for 30 minutes. If you are unable to control excessive bleeding, * You may experience some discomfort for a few days. If pain or swelling increases, Call Dr Jackson * Return to the office for a follow up check up on: SEPTEMBER 09 AT 9:15 * office address--[address] [place], [place] [address]. phone # [phone] Total Time Total Time Spent Total Time Spent (In Minutes): 40 Supervising Physician Co-Signing Physician Notes I have seen and discussed the case with the collaborating advanced practitioner. I agree with the above DS I have reviewed and confirmed the patients medical history, the findings on physical examination, and the patients diagnosis and treatment plan with Evgeny RON and agree with the information documented. Ms. Finn is a 28 yo old admitted for facial swelling and noted to have periodontal disease with abscess s/p extraction. Patient doing well postoperatively and plan to continue abx with doxy/flagyl given C.Diff risks. I spent a total of 10 minutes coordinating, documenting, and providing care for this patient excluding time spent in the performance of separately billed services. All of the aforementioned completed while collaborating with the carroll schultz advanced practitioner for a full treatment plan. Please see their addendum for further details. I have reviewed the advanced practitioner's documentation, and I agree with, and take responsibility for the plan of care
--- NOTE | 2024-08-28 12:42 | Operative Report ---
PG Post Operative Report Pre & Post Diagnosis Operation Date: 08/23/24 07:00 Pre-Op Diagnosis: Right Facial Infection, Sinus Infection, Carious # 1 and #3 (abscess teeth) Post-Op Diagnosis: Right Facial Infection, Sinus Infection, Carious # 1 and #3 (abscess teeth) I identified the patient and participated in the time-out.: Yes Procedure Operation Date: 08/23/24 07:00 Actual Procedures p Extraction of Teeth #1 and #3, Incision and Drainage of Right Facial Abscess, Right Maxillary Sinus Alvarez Hebert(Not Applicable) - Willard Jackson DMD Surgeon Willard Jackson DMD Lockstitcher none Estimated Blood Loss 5 Findings Consistent with Post-Op Diagnosis Specimens I&D Drains none Anesthesia Type General Complications none Disposition Accompanied Patient To Recovery: Yes Indications acute facial infection and sinus infection Description of Procedure I&D mucobuccal area, right sinus, extraction # 1 and 3 p Incision and Drainage right maxillary vestibule and infraorbital space Abscess Alvarez Hebert right sinus for drainage of infection - Willard Jackson DMD ICD 10 K12.2 , L03.211, J01.0, J34.1 CPT 74982 I & D of deep subcutaneous abscess of the inferior orbital and vestibular space of left maxilla CPT 38708 I & D of infected right maxillary sinus Once cleared for surgery general anesthesia was achieved, the eyes were protected by the anesthesia dept criteria. A time out was take for patient ID, antibiotics, equipment and position verification once all agreed the procedure began. Local anesthesia using Marcaine with a vasoconstrictor ( 1.8 ml per site) given into right posterior maxilla A throat pack was placed after the oral cavity was irrigated with saline. Once a surgical level of anesthesia was obtained and the local anesthesia was given time for the blocks the surgery was started. I turned my attention to the infection which was located in the in the right cheek,right vestibule, right tuberosity area, right Infraorbital fossa area and right sinus-see CT scan report Incision and Drainage ( 32748) Using a 15 blade an incision was made in the posterior aspect of the right vestibular area. Once the incision was made a lot of pus extruded from the site. This drainage was cultured for anaerobic and aerobic bacteria. A curved hemostat was carefully placed superior into the infected space to drain the infraorbital space. To gain access to the pocket of pus in the cheek another incision was made in th e vestibule. This allowed further drainage to escape. I palpated the face and cheek area and no further drainage was expressed. The area was irrigated with at least 100 ml of NS solution. Surgical extraction of # 1 and 3 (D7210 x 2) Now using a periosteal elevator the tissue was reflected to expose the alveolar bone. The rongeur was used to remove bone to allow the forceps to engage solid tooth structure. Using a controlled force the # 1 and 3 tooth was extracted in the standard manner. Once removed the roots were inspected and the socket was curetted. There was no sinus involvement. Alvarez Hebert of right sinus for I&D of infection and pressure for upper right sinus infection (CPT 21503) I turned my attention to the upper right side. As per CT scan and symptoms there is an acute infection w/i the right sinus with pus accumulation from the ongoing infection. As the result of dental disease, bone loss and extremely large maxillary sinus this patient developed an acute sinus infection. I raised a large mucoperiosteal flap from the tuberosity anterior to area #6. I scored the periosteum to allow for flap relaxation and a water tight tension free closure. I was able to relax the tissue enough to allow for a tension free closure. With a drill a small hole was placed high in the lateral sinus wall above the sockets of the dental roots. Once the opening was enlarged pus extruded from the sinus. I suctioned the mucopurulent material from the sinus. I now used about 200 cc of NS to irrigate the sinus clean. Once the fluid was clear I repositioned the large Alvarez-Hebert flap back in place to close the opening and the dental extraction sites. I inspected the sites to insure all bleeding was controlled. I removed the throat pack and suctioned the throat. A gauze pressure dressings was placed right posterior. All instrument and sponge count was correct. The patient was allowed to awake from the anesthesia. Once full awake the anesthesia tube was removed and the patient was taken to the recovery room with all vital sign stable. The patient tolerated the surgery very well. I will follow the patient in my office, Rx and instructions will be given upon discharge. Sinus precautions will be given I attest to the content of the Intraoperative Record and any orders documented therein. Any exceptions are noted below.
== END 2024-08-24 13:15 | disposition home or self-care (01) | DRG 135 ==
LOC: ED 13:22 → 3E 16:35 → SUATTDRO 16:35 → 3E 18:22